=== PATIENT | female | born 1955 | race Caucasian/White ===

== ENCOUNTER → 2018-02-08 | Outpatient (CLI) | payer BC ==
[~2018-02-08] MED LIST: ARMOUR THYROID30 MG PO; ASCORBIC ACID500 M3 PO; COLACE100 MG PO; DULCOLAX5 MG PO; KEFLEX500 MG PO; LITE COAT ASPI325 M1 PO; OS-CAL 500+D T1 EAC1 PO; ROBAXIN500 MG PO; TYLENOL REGULA325 MG PO; ULTRAM50 MG PO
== END | disposition home or self-care (01) ==
LOC: RAD 12:15
DX: R51 Headache (principal); H53.2 Diplopia
CPT/HCPCS: 70450